=== PATIENT | female | born 1960 | race African-American/Black ===

== ENCOUNTER 2016-12-01 16:42 | Emergency (ER) | payer OTHER ==
[~2016-12-01] VITALS: Ht 170.2 cm; Wt 73.6 kg
[~2016-12-01 16:42] MED LIST: ALBU8.5H IH; CLON1 PO; OXYC10 PO; PROZ10 PO
[2016-12-01] MEDS ORDERED: ESTR-7 PO (17:25)
[2016-12-01] MEDS ORDERED: OLAN15TA2 PO (17:25)
[2016-12-01] MEDS ORDERED: BECL8.7A5 PUFF (17:25)
[2016-12-01] MEDS ORDERED: FLUO20CA30 PO (17:25)
[2016-12-01] MEDS ORDERED: SULF1TAB42 PO (17:25)
[2016-12-01] MEDS ORDERED: TOPI50TA PO (17:25)
[2016-12-01] MEDS ORDERED: TRAZ-147 PO (17:25)
[2016-12-01] MEDS ORDERED: TIZA2TAB4 PO (17:25)
[2016-12-01] MEDS ORDERED: FAMO40TA7 PO (17:25)
[2016-12-01] MEDS ORDERED: ESTR1TAB17 PO (17:25)
[2016-12-01 18:08] LABS: BASOPHILS % (AUTO) 0.1 % (0.0-2.0); EOSINOPHILS % (AUTO) 1.2 % (1.0-6.0); HEMATOCRIT 41.2 % (36-46); LYMPHOCYTES % (AUTO) 21.6 % (22.0-44.0); MEAN CORPUSCULAR HGB CONC 31.6 G/dL (31.0-37.0); MEAN CORPUSCULAR VOLUME 101 fL (80-100); MONOCYTES # (AUTO) 0.8 K/uL (0.1-1.0); MONOCYTES % (AUTO) 8.9 % (2.0-9.0); NEUTROPHILS # (AUTO) 6.3 K/uL (1.8-7.7); NEUTROPHILS % (AUTO) 68.2 % (40.0-70.0); PLATELET COUNT (AUTO) 321 K/uL (150-450); RED BLOOD CELL COUNT(AUTO) 4.07 MIL/uL (4.00-5.20); RED CELL DISTRIBUTION WIDTH 12.5 % (11.5-14.5); WHITE BLOOD COUNT (AUTO) 9.3 K/uL (4.5-11.0)
[2016-12-01 18:15] LABS: ANION GAP 6 mmol/L (8-16); CALCIUM, TOTAL 9.1 mg/dL (8.8-10.5); CARBON DIOXIDE 30 mmol/L (22-29); CHLORIDE 107 mmol/L (98-107); CREATININE 0.75 mg/dL (0.60-1.30); GLOMERULAR FILTR. RATE CALC > 60 mL/min (>60); POTASSIUM 4.3 mmol/L (3.5-5.1); SODIUM SERUM 143 mmol/L (136-145); UREA NITROGEN, BLOOD 19 mg/dL (7-18)
[2016-12-01 18:21] LABS: ALANINE AMINOTRANSFERASE 23 U/L (12-78); ALBUMIN 3.8 g/dL (3.4-5.0); ASPARTATE AMINOTRANSFERASE 18 U/L (15-37); BILIRUBIN,TOTAL 0.5 mg/dL (0.1-1.0); TOTAL PROTEIN, SERUM 7.3 g/dL (6.4-8.2)
[2016-12-01 18:30] LABS: APPEARANCE,URINE CLOUDY (CLEAR); GLUCOSE, URINE (UA) NEGATIVE (NEGATIVE); KETONES,URINE NEGATIVE (NEGATIVE); LEUKOCYTE ESTERASE ,URINE NEGATIVE (NEGATIVE); OCCULT BLOOD,URINE TRACE (NEGATIVE); PH,URINE 5.5 (5.0-8.0); PROTEIN,URINE NEGATIVE (NEGATIVE)
[2016-12-01 18:37] LABS: ADD UA MICROSCOPIC YES; SQUAMOUS EPITHELIAL CELL,UR Many /LPF (None Seen)
[2016-12-01] MEDS ORDERED: OxyCODONE HCL/ACETAMINOPHEN 5-325 MG TABLET PO ONE (19:15)
[2016-12-01] MEDS ORDERED: LEVOFLOXACIN 500 MG TABLET PO ONE (20:30)
[2016-12-01 20:42] VITALS: BP 118/60
== END 2016-12-01 21:05 | disposition home or self-care (01) ==
LOC: EMS 16:43
DX: I88.0 Nonspecific mesenteric lymphadenitis (principal); R10.9 Unspecified abdominal pain; G89.29 Other chronic pain; M54.9 Dorsalgia, unspecified; F41.9 Anxiety disorder, unspecified; F31.9 Bipolar disorder, unspecified; F20.9 Schizophrenia, unspecified; M48.00 Spinal stenosis, site unspecified; M54.30 Sciatica, unspecified side; Z87.01 Personal history of pneumonia (recurrent); F17.210 Nicotine dependence, cigarettes, uncomplicated
CPT/HCPCS: 74176; 99285; 99406

== ENCOUNTER 2017-09-12 01:02 | Emergency (ER) | payer OTHER ==
[~2017-09-12] VITALS: Ht 170.2 cm; Wt 63.5 kg
[~2017-09-12 01:02] MED LIST changes: -ALBU8.5H IH; +ALBU8.5H8 IH; +BECL8.7A7 PUFF; +ESTR-7 PO; +ESTR1TAB17 PO; +FAMO40TA7 PO; +FLUO20CA30 PO; +OLAN15TA2 PO; -PROZ10 PO; +SULF1TAB42 PO; +TIZA2TAB4 PO; +TOPI50TA PO; +TRAZ-147 PO
[2017-09-12] MEDS ORDERED: ACETAMINOPHEN 500 MG TABLET PO ONE (05:15)
[2017-09-12] MEDS ORDERED: ALBUTEROL SULFATE HFA 90 MCG/PUFF 8 GM INHALER IH ONE (05:15)
[2017-09-12] MEDS ORDERED: GuaiFENesin/D-METHORPHAN [SUGAR-FREE] 200-20MG/10 ML SYRUP UDCUP PO ONE (05:15)
[2017-09-12] MEDS ORDERED: PredniSONE 20 MG TABLET PO ONE (05:15)
[2017-09-12] MEDS ORDERED: AMOXICILLIN TRIHYDRATE 250 MG CAPSULE PO ONE (05:15)
[2017-09-12 05:49] VITALS: BP 129/77
== END 2017-09-12 05:51 | disposition home or self-care (01) ==
LOC: EMS 01:03
DX: J20.9 Acute bronchitis, unspecified (principal); F20.9 Schizophrenia, unspecified; F17.210 Nicotine dependence, cigarettes, uncomplicated; F31.9 Bipolar disorder, unspecified; F41.9 Anxiety disorder, unspecified
CPT/HCPCS: 94640; 99284; 99406; J7512; J3535

== ENCOUNTER 2018-03-21 06:07 | Day surgery (SDC) | payer OTHER ==
[~2018-03-21] VITALS: Ht 170.2 cm; Wt 73.2 kg
[~2018-03-21 06:07] MED LIST changes: -TRAZ-147 PO; +TRAZ-186 PO
[2018-03-21] MEDS ORDERED: LIDOCAINE 4% 50 ML SOLUTION TP ONE (06:08)
[2018-03-21] MEDS ORDERED: LIDOCAINE 2% 30 ML JELLY TP ONE (06:08)
[2018-03-21] MEDS ORDERED: ALBUTEROL SULFATE 2.5 MG/0.5 ML NEB SOLUTION NEB ONE (06:08)
[2018-03-21] MEDS ORDERED: BENZOCAINE 20% 50 MCG/SPRAY 57 GM TP ONE (06:08)
[2018-03-21] MEDS ORDERED: EPINEPHrine 1:1,000 [1 MG/ML] AMP IM ONE (06:08)
[2018-03-21] MEDS ORDERED: SODIUM CHLORIDE 0.9% 1,000 ML IV ONE ×2 (07:00→07:04)
[2018-03-21] MEDS ORDERED: MIDAZOLAM HCL 2 MG/2 ML VIAL ONE (07:47)
[2018-03-21] MEDS ORDERED: FentaNYL CITRATE-PF 100 MCG/2 ML VIAL ONE (07:48)
[2018-03-21] MEDS ORDERED: MethylPREDNISolone SOD SUCC 125 MG/2 ML VIAL IVP ONE (08:45)
[2018-03-21] MEDS ORDERED: MethylPREDNISolone SOD SUCC 125 MG/2 ML VIAL ONE (08:53)
[2018-03-21] MEDS ORDERED: IBUP-2354 PO (10:20)
[2018-03-21] MEDS ORDERED: OXYGEN THERAPY IH SCH (20:00)
== END 2018-03-21 10:20 | disposition home or self-care (01) ==
LOC: SURGERY 06:07
PROVIDERS: ATTEND Internal Medicine Critical Care Medicine
DX: J38.4 Edema of larynx (principal); B37.0 Candidal stomatitis; J84.111 Idiopathic interstitial pneumonia, not otherwise specified; F17.210 Nicotine dependence, cigarettes, uncomplicated; J45.998 Other asthma; Z87.01 Personal history of pneumonia (recurrent); Z79.1 Long term (current) use of non-steroidal anti-inflammatories (NSAID); Z79.891 Long term (current) use of opiate analgesic; Z90.49 Acquired absence of other specified parts of digestive tract; Z98.890 Other specified postprocedural states
CPT/HCPCS: 31623; 31624; 71045; 87015; 87070; 87205; 87206; 87220; 88108; 88312; J0171; J2250; J2930; J3010; J7030

== ENCOUNTER 2019-07-31 19:37 | Emergency (ER) | payer OTHER ==
[~2019-07-31] VITALS: Ht 170.2 cm; Wt 75.0 kg
[~2019-07-31 19:37] MED LIST changes: -ALBU8.5H8 IH; -BECL8.7A7 PUFF; -CLON1 PO; -ESTR-7 PO; -ESTR1TAB17 PO; -FAMO40TA7 PO; -FLUO20CA30 PO; +IBUP-2271 PO; -OLAN15TA2 PO; -OXYC10 PO; -SULF1TAB42 PO; -TIZA2TAB4 PO; -TOPI50TA PO; -TRAZ-186 PO
[2019-07-31] MEDS ORDERED: IBUP100O27 PO (20:02)
[2019-07-31 22:21] VITALS: BP 136/75
[2019-09-15] MEDS ORDERED: DOXY100C PO (10:19)
[2019-09-15] MEDS ORDERED: PRED10 PO (10:19)
== END 2019-07-31 22:26 | disposition home or self-care (01) ==
LOC: EMS 19:39
DX: J06.9 Acute upper respiratory infection, unspecified (principal); B97.89 Other viral agents as the cause of diseases classified elsewhere; J04.0 Acute laryngitis; G89.29 Other chronic pain; F41.9 Anxiety disorder, unspecified; F31.9 Bipolar disorder, unspecified; F20.9 Schizophrenia, unspecified; Z98.890 Other specified postprocedural states

== ENCOUNTER 2019-08-04 20:14 | Emergency (ER) | payer OTHER ==
[~2019-08-04] VITALS: Ht 170.2 cm; Wt 75.0 kg
[~2019-08-04 20:14] MED LIST changes: -IBUP-2271 PO; +IBUP100O27 PO
[2019-08-04 20:17] VITALS: BP 161/84
[2019-09-15] MEDS ORDERED: DOXY100C PO (10:19)
[2019-09-15] MEDS ORDERED: PRED10 PO (10:19)
== END 2019-08-04 20:37 | disposition left against medical advice (07) ==
LOC: EMS 20:16
DX: R06.02 Shortness of breath (principal); Z53.21 Procedure and treatment not carried out due to patient leaving prior to being seen by health care provider

== ENCOUNTER 2019-09-18 07:06 | Day surgery (SDC) | payer OTHER ==
[~2019-09-18] VITALS: Ht 170.2 cm; Wt 82.7 kg
[~2019-09-18 07:06] MED LIST changes: +DOXY100C PO; -IBUP100O27 PO; +PRED10 PO; +SODIUM CHLORIDE 0.9% 1,000 ML IV ONE
[2019-09-18] MEDS ORDERED: ALBUTEROL SULFATE 2.5 MG/0.5 ML NEB SOLUTION NEB ONE (07:07)
[2019-09-18] MEDS ORDERED: LIDOCAINE 2% 30 ML JELLY TP ONE (07:07)
[2019-09-18] MEDS ORDERED: BENZOCAINE 20% 50 MCG/SPRAY 57 GM TP ONE (07:07)
[2019-09-18] MEDS ORDERED: LIDOCAINE 2% 5 ML JELLY TP ONE (07:07)
[2019-09-18] MEDS ORDERED: SODIUM CHLORIDE 0.9% 1,000 ML ONE (07:44)
[2019-09-18] MEDS ORDERED: MIDAZOLAM HCL 2 MG/2 ML VIAL ONE (08:10)
[2019-09-18] MEDS ORDERED: FentaNYL CITRATE-PF 100 MCG/2 ML VIAL ONE (08:10)
[2019-09-18] MEDS ORDERED: MethylPREDNISolone SOD SUCC 125 MG/2 ML VIAL IVP ONE (08:45)
[2019-09-18] MEDS ORDERED: MethylPREDNISolone SOD SUCC 125 MG/2 ML VIAL ONE (09:11)
[2019-09-18] MEDS ORDERED: OXYGEN THERAPY IH SCH (20:00)
== END 2019-09-18 10:40 | disposition home or self-care (01) ==
LOC: SURGERY 07:06
PROVIDERS: ATTEND Internal Medicine Critical Care Medicine
DX: R05 Cough (principal); R91.8 Other nonspecific abnormal finding of lung field; J38.4 Edema of larynx; B37.0 Candidal stomatitis; J39.8 Other specified diseases of upper respiratory tract; J45.909 Unspecified asthma, uncomplicated; M19.90 Unspecified osteoarthritis, unspecified site; Z88.6 Allergy status to analgesic agent; Z79.899 Other long term (current) drug therapy; Z95.1 Presence of aortocoronary bypass graft; Z98.890 Other specified postprocedural states
CPT/HCPCS: 31623; 31624; 71045; 87015; 87070; 87101; 87205; 87206; 87220; 88184; 88185; 88312; J2250; J2930; J3010; J7030

== ENCOUNTER 2020-02-04 19:37 | Emergency (ER) | payer OTHER ==
[~2020-02-04] VITALS: Ht 170.2 cm; Wt 71.4 kg
[~2020-02-04 19:37] MED LIST changes: -SODIUM CHLORIDE 0.9% 1,000 ML IV ONE
[2020-02-04] MEDS ORDERED: [UNRECOGNIZED DRUG - CODE] TP (19:50)
[2020-02-04] MEDS ORDERED: NAPH15DR75 OU (19:50)
[2020-02-04] MEDS ORDERED: GABA-1181 PO (19:50)
[2020-02-04] MEDS ORDERED: KETOROLAC TROMETHAMINE 60 MG/2 ML VIAL IM ONE (21:15)
[2020-02-04] MEDS ORDERED: LORazepam 2 MG/ML VIAL IM ONE (21:15)
[2020-02-04 22:15] VITALS: BP 129/51
[2020-02-04] MEDS ORDERED: METHOCARBAMOL 500 MG TABLET PO ONE (22:30)
== END 2020-02-04 22:44 | disposition home or self-care (01) ==
LOC: EMS 19:38
DX: M79.652 Pain in left thigh (principal); F41.9 Anxiety disorder, unspecified; F31.9 Bipolar disorder, unspecified; F20.9 Schizophrenia, unspecified; G89.29 Other chronic pain; F17.210 Nicotine dependence, cigarettes, uncomplicated
CPT/HCPCS: 72170; 73552; 96372; 99284; 99406; J1885; J2060

== ENCOUNTER 2021-03-17 12:39 | Emergency (ER) | payer OTHER ==
[~2021-03-17] VITALS: Ht 172.7 cm; Wt 72.7 kg
[~2021-03-17 12:39] MED LIST changes: -DOXY100C PO; +GABA-1181 PO; +NAPH15DR75 OU; +[UNRECOGNIZED DRUG - CODE] TP
[2021-03-17 14:24] LABS: BASOPHILS % (AUTO) 0.5 % (0.0-2.0); EOSINOPHILS % (AUTO) 0.8 % (1.0-6.0); HEMATOCRIT 40.4 % (36-46); HEMOGLOBIN 13.4 g/dL (12.0-16.0); LYMPHOCYTES # (AUTO) 1.9 K/uL (1.0-4.8); LYMPHOCYTES % (AUTO) 19.2 % (22.0-44.0); MEAN CORPUSCULAR HEMOGLOBIN 33.5 pg (26.0-34.0); MEAN CORPUSCULAR HGB CONC 33.1 G/dL (31.0-37.0); MEAN CORPUSCULAR VOLUME 101 fL (80-100); MONOCYTES # (AUTO) 0.7 K/uL (0.1-1.0); MONOCYTES % (AUTO) 7.4 % (2.0-9.0); NEUTROPHILS # (AUTO) 7.1 K/uL (1.8-7.7); NEUTROPHILS % (AUTO) 72.1 % (40.0-70.0); PLATELET COUNT (AUTO) 360 K/uL (150-450); RED CELL DISTRIBUTION WIDTH 13.6 % (11.5-14.5)
[2021-03-17 14:34] LABS: ANION GAP 6 mmol/L (8-16); CALCIUM, TOTAL 9.3 mg/dL (8.8-10.5); CARBON DIOXIDE 29 mmol/L (22-29); CHLORIDE 105 mmol/L (98-107); CREATININE 0.67 mg/dL (0.60-1.30); GLOMERULAR FILTR. RATE CALC > 60 mL/min (>60); GLUCOSE,RANDOM 90 mg/dL (70-110); POTASSIUM 4.9 mmol/L (3.5-5.1); SODIUM SERUM 140 mmol/L (136-145); UREA NITROGEN, BLOOD 15 mg/dL (7-18)
[2021-03-17 14:40] LABS: ALANINE AMINOTRANSFERASE 20 U/L (12-78); ALBUMIN 3.5 g/dL (3.4-5.0); ALKALINE PHOSPHATASE 101 U/L (46-116); ASPARTATE AMINOTRANSFERASE 15 U/L (15-37); BILIRUBIN,TOTAL 0.3 mg/dL (0.1-1.0); LIPASE 65 U/L (73-393)
[2021-03-17 14:44] LABS: APPEARANCE,URINE CLEAR (CLEAR); BILIRUBIN,URINE NEGATIVE (NEGATIVE); GLUCOSE, URINE (UA) NEGATIVE (NEGATIVE); KETONES,URINE NEGATIVE (NEGATIVE); LEUKOCYTE ESTERASE ,URINE NEGATIVE (NEGATIVE); NITRATE,URINE NEGATIVE (NEGATIVE); OCCULT BLOOD,URINE MODERATE (NEGATIVE); PROTEIN,URINE NEGATIVE (NEGATIVE); UROBILINOGEN,URINE 0.2 mg/dL (<=1.0)
[2021-03-17 14:53] LABS: BACTERIA,URINE None Seen /HPF (None Seen); SQUAMOUS EPITHELIAL CELL,UR Few /LPF (None Seen); WBC,URINE 0-2 /HPF (0-5)
[2021-03-17] MEDS: ONDANSETRON HCL 4 MG/2 ML VIAL IVP ONE (14:56)
[2021-03-17] MEDS: KETOROLAC TROMETHAMINE 30 MG/ML VIAL IVP ONE (14:56)
[2021-03-17] MEDS: SODIUM CHLORIDE 0.9% 1,000 ML IV ONE (14:57)
[2021-03-17 16:30] VITALS: BP 122/81
== END 2021-03-17 16:51 | disposition home or self-care (01) ==
LOC: EMS 12:41
DX: R10.32 Left lower quadrant pain (principal); F31.9 Bipolar disorder, unspecified; F41.9 Anxiety disorder, unspecified; F20.9 Schizophrenia, unspecified; Z79.899 Other long term (current) drug therapy
CPT/HCPCS: 36415; 74176; 80053; 81001; 83690; 85025; 96361; 96374; 96375; 99285; J1885; J2405; J7030

== ENCOUNTER 2021-04-11 06:37 | Day surgery (SDC) | payer OTHER ==
[~2021-04-11] VITALS: Ht 170.2 cm; Wt 69.5 kg
[~2021-04-11 06:37] MED LIST changes: +SODIUM CHLORIDE 0.9% 1,000 ML ONE
[2021-04-11] MEDS ORDERED: BENZOCAINE 20% 50 MCG/SPRAY 57 GM TP ONE (06:38)
[2021-04-11] MEDS ORDERED: LIDOCAINE 2% 30 ML JELLY TP ONE (06:38)
[2021-04-11] MEDS ORDERED: ALBUTEROL SULFATE 2.5 MG/0.5 ML NEB SOLUTION NEB ONE (06:38)
[2021-04-11] MEDS ORDERED: LIDOCAINE 4% 50 ML SOLUTION TP ONE (06:38)
[2021-04-11] MEDS ORDERED: SODIUM CHLORIDE 0.9% 1,000 ML IV ONE (07:00)
[2021-04-11] MEDS ORDERED: MIDAZOLAM HCL 5 MG/ML VIAL ONE (07:48)
[2021-04-11] MEDS ORDERED: FentaNYL CITRATE PF 100 MCG/2 ML VIAL ONE (07:48)
[2021-04-11] MEDS ORDERED: IBUP-2071 PO (09:25)
[2021-04-11] MEDS ORDERED: MethylPREDNISolone SOD SUCC 125 MG/2 ML VIAL IVP ONE (09:30)
[2021-04-11] MEDS ORDERED: MethylPREDNISolone SOD SUCC 125 MG/2 ML VIAL ONE (10:27)
[2021-04-11] MEDS ORDERED: OXYGEN THERAPY IH SCH (20:00)
== END 2021-04-11 11:45 | disposition home or self-care (01) ==
LOC: SURGERY 06:37
PROVIDERS: ATTEND Internal Medicine Critical Care Medicine
DX: J38.4 Edema of larynx (principal); B37.0 Candidal stomatitis; J44.9 Chronic obstructive pulmonary disease, unspecified; Z87.891 Personal history of nicotine dependence; Z98.890 Other specified postprocedural states; Z72.89 Other problems related to lifestyle
CPT/HCPCS: 31623; 31624; 71045; 87015; 87070; 87101; 87205; 87206; 87220; 88108; 88184; 88185; 88312; J2250; J2930; J3010; J7030; J7613; Z7610

== ENCOUNTER 2024-01-14 21:13 | Emergency (ER) | payer OTHER ==
[~2024-01-14] VITALS: Ht 165.1 cm; Wt 65.9 kg
[~2024-01-14 21:13] MED LIST changes: -GABA-1181 PO; +IBUP-1493 PO; +PRED-729 PO; -PRED10 PO; -SODIUM CHLORIDE 0.9% 1,000 ML ONE; -[UNRECOGNIZED DRUG - CODE] TP
[2024-01-14 21:26] VITALS: TEMP 98.2
[2024-01-14 22:23] LABS: APPEARANCE,URINE CLEAR (CLEAR); BILIRUBIN,URINE NEGATIVE (NEGATIVE); COLOR,URINE LIGHT YELLOW (YELLOW); GLUCOSE, URINE (UA) TRACE mg/dL (NEGATIVE); KETONES,URINE NEGATIVE (NEGATIVE); LEUKOCYTE ESTERASE ,URINE SMALL (NEGATIVE); NITRATE,URINE NEGATIVE (NEGATIVE); OCCULT BLOOD,URINE TRACE (NEGATIVE); PH,URINE 5.5 (5.0-8.0); PROTEIN,URINE NEGATIVE (NEGATIVE); SPECIFIC GRAVITIY, URINE 1.025 (1.003-1.030); UROBILINOGEN,URINE <=1.0 mg/dL (<=1.0)
[2024-01-14 22:40] LABS: BASOPHILS % (AUTO) 0.4 % (0.0-2.0); EOSINOPHILS % (AUTO) 2.8 % (1.0-6.0); HEMATOCRIT 36.8 % (36-46); LYMPHOCYTES # (AUTO) 2.5 K/uL (1.0-4.8); LYMPHOCYTES % (AUTO) 29.5 % (22.0-44.0); MEAN CORPUSCULAR HGB CONC 32.7 G/dL (31.0-37.0); MEAN CORPUSCULAR VOLUME 98 fL (80-100); MONOCYTES # (AUTO) 0.6 K/uL (0.1-1.0); MONOCYTES % (AUTO) 6.5 % (2.0-9.0); NEUTROPHILS # (AUTO) 5.2 K/uL (1.8-7.7); NEUTROPHILS % (AUTO) 60.8 % (40.0-70.0); PLATELET COUNT (AUTO) 328 K/uL (150-450); RED BLOOD CELL COUNT(AUTO) 3.76 MIL/uL (4.00-5.20); RED CELL DISTRIBUTION WIDTH 13.8 % (11.5-14.5); WHITE BLOOD COUNT (AUTO) 8.6 K/uL (4.5-11.0)
[2024-01-14 22:41] LABS: BACTERIA,URINE None Seen /HPF (None Seen); RBC,URINE 0-2 /HPF (0-2); SQUAMOUS EPITHELIAL CELL,UR Few /LPF (None Seen)
[2024-01-14 22:48] LABS: ANION GAP 8 mmol/L (8-16); CARBON DIOXIDE 28 mmol/L (22-29); CHLORIDE 108 mmol/L (98-107); CREATININE 0.86 mg/dL (0.60-1.30); GLOMERULAR FILTR. RATE CALC > 60 mL/min (>60); GLUCOSE,RANDOM 84 mg/dL (70-110); POTASSIUM 3.9 mmol/L (3.5-5.1); SODIUM SERUM 144 mmol/L (136-145); UREA NITROGEN, BLOOD 32 mg/dL (7-18)
[2024-01-14 22:49] LABS: LIPASE 19 U/L (16-77)
[2024-01-14 22:56] LABS: TROPONIN I-HIGH SENSITIVITY 6 ng/L (<51)
[2024-01-14] MEDS: LORazepam 2 MG TABLET PO ONE (22:57)
[2024-01-14] MEDS: SODIUM CHLORIDE 0.9% 1,000 ML IV ONE (22:58)
[2024-01-14] MEDS ORDERED: IOHEXOL 350 MG/ML 100 ML VIAL ONE (23:07)
[2024-01-14] MEDS ORDERED: SODIUM CHLORIDE 0.9% 100 ML ONE (23:07)
[2024-01-15 02:48] VITALS: BP 121/61; PULSE 64; RESP 14
[2024-01-15] MEDS ORDERED: CEPH-558 PO (03:31)
[2024-01-15] MEDS ORDERED: POLY119P3 PO (03:31)
[2024-01-15] MEDS: CEPHALEXIN MONOHYDRATE 500 MG CAPSULE PO ONE (03:39)
== END 2024-01-15 04:18 | disposition home or self-care (01) ==
LOC: EMS 21:13
DX: K59.00 Constipation, unspecified (principal); N39.0 Urinary tract infection, site not specified; R10.31 Right lower quadrant pain; R31.9 Hematuria, unspecified; Z79.899 Other long term (current) drug therapy
CPT/HCPCS: 99285; 96360; 76856; 80048; 81001; 83690; 84484; 85025; 36415; 93005; 74177; Q9967; J7030; J7050; 99284